=== PATIENT | female | born 1945 | race Caucasian/White ===

== ENCOUNTER 2021-07-24 08:28 | Emergency (ER) | payer MEDICARE ==
[~2021-07-24] VITALS: Ht 157.5 cm; Wt 80.0 kg
[~2021-07-24 08:28] MED LIST: ACID REDUCER M150 MG PO; BACLOFEN10 MG PO; CIPRODEX1 ML AU; DEPO-MEDROL80 MG/ML IM; FLOXIN OTIC0.3 % AS; FLUARIX QUADRIV1 IN1 IM; LISINOP/HCTZ1 TA2 PO; MECLIZINE25 MG PO; MEDDOSEPAK PO; NORVASC PO; OXYCOD-APAP1 TA1 PO; PHENERGAN12.5 MG/TA PO; POM PO; [UNRECOGNIZED DRUG - REMARK]
[2021-07-24] MEDS ORDERED: LISINOPRIL20 M1 PO (09:23)
[2021-07-24] MEDS ORDERED: LIPITOR20 M1 PO (09:23)
[2021-07-24] MEDS ORDERED: HYDROCODONE BIT1 TA7 PO (09:24)
[2021-07-24] MEDS ORDERED: CYCLOBENZAPRINE10 MG PO (09:26)
[2021-07-24] MEDS ORDERED: MILK OF MAG2 (09:28)
[2021-07-24] MEDS ORDERED: VITAMIN D PO (09:30)
[2021-07-24 09:47] VITALS: BP 149/71
== END 2021-07-24 09:56 | disposition home or self-care (01) ==
LOC: ED 08:28
DX: S80.02XA Contusion of left knee, initial encounter (principal); I10 Essential (primary) hypertension; W18.30XA Fall on same level, unspecified, initial encounter; Y92.003 Bedroom of unspecified non-institutional (private) residence as the place of occurrence of the external cause

== ENCOUNTER 2023-06-03 06:47 | Day surgery (SDC) | payer MEDICARE ==
[~2023-06-03] VITALS: Ht 160 cm; Wt 67.1 kg
[~2023-06-03 06:47] MED LIST changes: +AMOX/K CLAV875 M1 PO; +CYCLOBENZAPRINE10 MG PO; +HYDROCODONE BIT1 TA7 PO; +LIPITOR20 M1 PO; +LISINOPRIL20 M1 PO; +METFORMIN HCL500 M1 PO; +METHOTREXATE2.5 MG PO; +MILK OF MAG2; +PERCOCET 5/321 COMBO PO; +TRAMADOL HYDROC50 M1; +VITAMIN D PO; +ZOFRAN4 MG/TAB PO
[2023-06-03 08:10] VITALS: BP 163/84
== END 2023-06-03 08:26 | disposition home or self-care (01) ==
LOC: ENDO 06:47 → ORM 07:30 → ENDO 08:26 → ORM 09:30
PROVIDERS: ATTEND Internal Medicine Gastroenterology
PROC: 0DB78ZX Excision of Stomach, Pylorus, Via Natural or Artificial Opening Endoscopic, Diagnostic (ICD-10-PCS; principal; 2023-06-03)
DX: K29.50 Unspecified chronic gastritis without bleeding (principal); Z90.49 Acquired absence of other specified parts of digestive tract